=== PATIENT | male | born 1945 | race Caucasian/White ===

== ENCOUNTER 2017-10-20 07:45 | Emergency (ER) | payer BC, OTHER ==
[2017-10-20 07:53] VITALS: BP 150/76; PULSE 83; TEMP 99.3; BMI 25.4
--- NOTE | 2017-10-20 08:29 | PDOC ---
History of Present Illness - General History Source: Patient Exam Limitations: No Limitations - History of Present Illness Initial Comments: 10/20/17 08:39 72 year old male with PMH HTN and facial abscess presents to ED for right sided facial rash since yesterday. He denies fever, chills, nausea, vomiting, generalized weakness, headache, chest pain, shortness of breath. He states he had a similar occurrence that surgical incision and drainage. Allergies - Aspirin <Kimberli Manley - Last Filed: 10/20/17 09:23> <Carmen Dunham - Last Filed: 10/20/17 09:39> - General Chief Complaint: Abscess Boil Stated Complaint: FACIAL RASH Time Seen by Provider: 10/20/17 08:29 Past History - Past Medical History COPD: No HTN: Yes - Suicide/Smoking/Psychosocial Hx Smoking History: Former smoker Have you smoked in the past 12 months: No Information on smoking cessation initiated: No Hx Alcohol Use: No Drug/Substance Use Hx: No Substance Use Type: None <Kimberli Manley - Last Filed: 10/20/17 09:23> <Carmen Dunham - Last Filed: 10/20/17 09:39> - Past Medical History Allergies/Adverse Reactions: Allergies Allergy/AdvReac Type Severity Reaction Status Date / Time aspirin Allergy Verified 10/20/17 07:49 Home Medications: Ambulatory Orders Cephalexin [Keflex] 500 mg PO QID #27 capsule 10/20/17 Review of Systems - Review of Systems Able to Perform ROS?: Yes Comments:: 10/20/17 08:38 General: denies fever, chills, night sweats, generalized weakness. HEENT: denies sore throat, rhinorrhea, ear pain. Heart: denies chest pain, palpitations, syncope, lower extremity swelling, diaphoresis. Respiratory: denies shortness of breath, cough, sputum production, hematemesis. Abdomen: denies abdominal pain, nausea, vomiting, diarrhea, constipation, blood in stool. : denies dysuria, increased urinary frequency, hematuria, urinary incontinence , flank pain. Back: denies back pain, flank pain. Musculoskeletal: denies joint pain, muscle pain, joint swelling. Neurological: denies headache, dizziness, numbness, tingling, weakness. Skin: admits to facial rash. <Kimberli Manley Last Filed: 10/20/17 09:23> *Physical Exam - Vital Signs Last Vital Signs Temp Pulse Resp BP Pulse Ox 99.3 F 83 18 150/76 100 10/20/17 07:50 10/20/17 07:50 10/20/17 07:50 10/20/17 07:50 10/20/17 07:50 - Physical Exam Comments: 10/20/17 08:38 Appearance: comfortable. HEENT: head is normocephalic, atraumatic. EOMI. PERRLA. Neck: supple. Full ROM. Heart: regular rhythm. no murmurs, rubs or gallops. No pericardial friction rub. Lungs: clear to auscultation bilaterally. no crackles, rhonchi or wheezing. no stridor. Abdomen: soft, nontender. normal bowel sounds. no rebound, guarding, masses. Extremities: Peripheral pulses intact and equal. No lower extremity edema. Neurological: Alert. Oriented x3. CN 2-12 grossly intact. Moves all four extremities. Skin: 3x2 cm indurated, erythematous lesion without fluctuance noted to right cheek. <Kimberli Manley - Last Filed: 10/20/17 09:23> - Vital Signs Last Vital Signs Temp Pulse Resp BP Pulse Ox 99.3 F 83 18 150/76 100 10/20/17 07:50 10/20/17 07:50 10/20/17 07:50 10/20/17 07:50 10/20/17 07:50 <Carmen Dunham - Last Filed: 10/20/17 09:39> ED Treatment Course - Medications Given in the ED: ED Medications Discontinued Medications Generic Name Dose Route Start Last Admin Trade Name Freq PRN Reason Stop Dose Admin Cephalexin HCl 500 mg 10/20/17 09:11 10/20/17 09:20 Keflex - PO 10/20/17 09:12 500 mg ONCE ONE Administration - Consult/PCP Time Called: 09:11 (Paged PCP - Dr. Canelo Barrera) <Carmen Dunham - Last Filed: 10/20/17 09:39> Medical Decision Making - Medical Decision Making 10/20/17 09:19 72 year old male with PMH HTN presenting for left facial developing abscess. Initial Vital Signs Temp Pulse Resp BP Pulse Ox 99.3 F 83 18 150/76 100 10/20/17 07:50 10/20/17 07:50 10/20/17 07:50 10/20/17 07:50 10/20/17 07:50 Afebrile. No tachycardia. No hypotension. No hypoxia. Pt will be given first dose of Keflex here in ED. Black line drawn around erythema to assess growth or regression of abscess at a later date. I discussed the plan of care with the patient and his , who agrees. Pt will be discharged with instructions to follow up with PCP or ED in 2 days for re-evaluation of abscess, strict return precautions and prescription for Keflex. <Kimberli Manley - Last Filed: 10/20/17 09:23> *DC/Admit/Observation/Transfer - Discharge Dispostion Decision to Admit order: No <Kimberli Manley - Last Filed: 10/20/17 09:23> <Carmen Dunham - Last Filed: 10/20/17 09:39> Diagnosis at time of Disposition: Abscess - Discharge Dispostion Disposition: HOME Condition at time of disposition: Stable - Prescriptions Prescriptions: Cephalexin [Keflex] 500 mg PO QID #27 capsule - Patient Instructions Printed Discharge Instructions: DI for Skin Abscess Additional Instructions: You were seen today for facial rash. You likely have a developing abscess. Apply warm compresses to the area. I have sent a prescription for Keflex and sent it to your pharmacy. Take all of your pills as prescribed. Do not miss any doses of your medication. Take a probiotic with your antibiotics to avoid antibiotic associated diarrhea. Drink lots of clear fluids, like water to stay hydrated. Please return to the Emergency Department or see your Primary Care Doctor within 2 days for re-evaluation and possible drainage. Please follow up with your primary care provider within 7 days. Call them today and make an appointment. Please bring the paperwork given to you today with you for this appointment. Return to the ED sooner than 2 days for: fever, generalized weakness, nausea, vomiting, increasing size of abscess, difficulty breathing, or any other new, worsening or concerning symptoms.
--- NOTE | 2017-10-20 09:01 | PDOC ---
Attending Attestation - Resident Resident Name: Kimberli Manley - ED Attending Attestation I have performed the following: I have examined & evaluated the patient, The case was reviewed & discussed with the resident, I agree w/resident's findings & plan, Exceptions are as noted - Physicial Exam PE: 10/20/17 09:10 GENERAL: The patient is in no acute distress. EYES: PERRLA, EOMI, sclera anicteric, conjunctiva clear, no diplopia. NECK: Normal range of motion LUNGS: Breath sounds equal, clear to auscultation bilaterally. HEART:Regular rate and rhythm, normal S1 and S2 without murmur, rub or gallop. ABDOMEN: Soft, nontender NEUROLOGICAL: Cranial nerves II through XII grossly intact. Normal speech. No focal neurological deficits. SKIN: right cheek erythema, induration approximately 2 cm x 2 cm - Medical Decision Making 10/20/17 09:11 72 yo M who presents with an area of cellulitis overlying the right cheek no drainable abscess felt at this time No signs of pre septal cellulitis Will do abx, warm compresses Will outline area of erythema Will call PMD Clinical impression: cellulitis, initial presentation <Rebekah Conway - Last Filed: 10/20/17 09:10> - HPI HPI: The patient is a 72 year old male, who presents with right facial rash since yesterday morning. He states that he has had this before on his left side which he reports getting cut and drained. He reports that last time he had this it grew to a significant size and spaghetti like pus came out. He denies any fever. Denies recent bug bites. Denies any internal pain, states pain is superficial. Denies pain with eye movement. Allergies: aspirin PCP: Canelo Barrera <Carmen Dunham - Last Filed: 10/20/17 09:40>
[2017-10-20] MEDS ORDERED: CEPHALEXIN MONOHYDRATE 500 MG CAPSULE (UD) PO ONE (09:11)
[2017-10-20] MEDS ORDERED: CEPHALEXIN MONOHYDRATE 500 MG CAPSULE (UD) ONE (09:28)
== END 2017-10-20 10:06 | disposition home or self-care (01) ==
LOC: JER 07:45
DX: L02.01 Cutaneous abscess of face (principal); I10 Essential (primary) hypertension; Z87.891 Personal history of nicotine dependence
CPT/HCPCS: 99281-25